=== PATIENT | female | born 1990 | race Caucasian/White ===

== ENCOUNTER 2024-07-19 18:25 | Emergency (ER) | payer MEDICAID, SELFPAY ==
[2024-07-19 18:31] VITALS: BP 133/87; PULSE 114; RESP 22; TEMP 36.6; O2SAT 100; BMI 22.3
--- NOTE | 2024-07-19 18:45 | W.ED.NAVMDI ---
HPI - Nausea/Vomiting/Diarrhea General: Chief complaint: Nausea/Vomiting/Diarrhea Stated complaint: n/v urgent care Time Seen by Provider: 07/19/24 18:41 History of Present Illness: 33-year-old female with a history of anxiety who presents emergency room with nausea and vomiting. She has had a headache. Neck pain. She is having cramping and moriah of her hands bilaterally. She appears extremely anxious. She is tachycardic. She says her chest feels tight. She feels hot. No abdominal pain. No chest pain. No known fevers. Related Data Home Medications ?Medication ?Instructions ?Recorded ?Confirmed albuterol sulfate 90 mcg/actuation 1 inh inhalation QID 05/29/24 07/19/24 aerosol inhaler Previous Rx's ?Medication ?Instructions ?Recorded tizanidine 4 mg tablet 4 mg PO Q8H PRN muscle spasticity 01/13/24 #14 tabs clotrimazole 1 % topical cream 1 applic topical BID 7 days #15 03/22/24 (Lotrimin AF (clotrimazole)) grams fluticasone propionate 50 1 spray intranasal BID 7 days #16 03/22/24 mcg/actuation nasal grams spray,suspension (Flonase Allergy Relief) triamcinolone acetonide 0.5 % 1 applic topical BID 7 days #15 03/22/24 topical ointment grams oxybutynin chloride 10 mg See Rx Instructions .Route 05/31/24 tablet,extended release 24 hr .COMPLEX #30 tabs hydroxyzine HCl 50 mg tablet 50 mg PO QID PRN anxiety/insomnia 06/26/24 #120 tabs sertraline 100 mg tablet (Zoloft) 200 mg (2 x 100 mg) PO DAILY #60 06/26/24 tabs trazodone 100 mg tablet 300 mg (3 x 100 mg) PO .HS PRN 06/26/24 insomnia #90 tabs ondansetron 4 mg disintegrating 4 mg PO Q8H PRN nausea and 07/19/24 tablet vomiting #10 tabs promethazine 25 mg rectal 25 mg MI Q6H PRN nausea and 07/19/24 suppository vomiting #12 ea Allergies Allergy/AdvReac Type Severity Reaction Status Date / Time aspirin Allergy Severe Tongue Verified 07/19/24 18:34 swells cephalexin (From Keflex) Allergy Unknown swelling Verified 07/19/24 18:34 Latex, Natural Rubber AdvReac Severe Montiel skin. Verified 07/19/24 18:34 Review of Systems Narrative: Constitutional symptoms: Negative except as documented in HPI. Skin symptoms: Negative except as documented in HPI. Eye symptoms: Negative except as documented in HPI. ENMT symptoms: Negative except as documented in HPI. Respiratory symptoms: Negative except as documented in HPI. Cardiovascular symptoms: Negative except as documented in HPI. Gastrointestinal symptoms: Negative except as documented in HPI. Genitourinary symptoms: Negative except as documented in HPI. Musculoskeletal symptoms: Negative except as documented in HPI. Neurologic symptoms: Negative except as documented in HPI. Psychiatric symptoms: Negative except as documented in HPI. Endocrine symptoms: Negative except as documented in HPI. PFSH ED PFSH: Medical History ENID (generalized anxiety disorder) High grade squamous intraepithelial lesion (HGSIL), grade 3 MARLEN, on biopsy of cervix Chronic pain Arthropathy of spinal facet joint History of spinal fracture Psychiatric care Surgical History History of partial hysterectomy History of open reduction and internal fixation (ORIF) procedure Left femur age 14 History of D&C History of tubal ligation History of hysterectomy Family History Mother Cancer Father Cancer Grandmother Diabetes Hypertension Grandfather Diabetes Hypertension Hyperthyroidism Grandmother Breast cancer Hypertension Stroke Grandfather Diabetes Heart disease Hypertension Stroke Social History Smoking and tobacco/nicotine status: never used tobacco/nicotine Alcohol intake: never Substance/Drug Use: current Adopted: No Caregiver/support person: No Lives independently: Yes Household members: family Housing: House Marital status: Number of children: 3 service: No Current occupational status: disabled Current occupational exposures/hazards: No Pets and animals: No Do you think of yourself as: Straight/Heterosexual Current gender identity: Female Physical Exam Narrative: EXAM NARRATIVE: General: Alert, no acute distress. Skin: Warm, dry. Head: Normocephalic, atraumatic. Neck: Supple, trachea midline. Eye: Extraocular movements are intact. Ears, nose, mouth and throat: mucosa moist. Cardiovascular: Regular, Normal peripheral perfusion. Respiratory: Lungs are clear to auscultation, respirations are non-labored, breath sounds are equal, Symmetrical chest wall expansion. Gastrointestinal: Soft, Nontender, Non distended Musculoskeletal: Normal ROM, no deformity. Neurological: Alert and oriented, No focal neurological deficit observed. Psychiatric: Cooperative, patient appears quite anxious. She is somewhat tearful. Her hands are cramped. Course Vital Signs: Vital signs: Vital Signs Temperature 97.9 F 07/19/24 18:31 Pulse Rate 66 07/19/24 19:28 Respiratory Rate 16 07/19/24 19:28 Blood Pressure 135/82 07/19/24 19:28 Pulse Oximetry 99 07/19/24 19:28 Oxygen Delivery Me thod Room Air 07/19/24 19:28 MDM - Nausea/Vomiting/Diarrhea Medical Decision Making Medical decision making: Differential diagnosis for this patient with nausea and vomiting including but not limited to and based on the above HPI, review of systems and physical exam: Urinary tract infection. Appendicitis. Cholecystis. colitis. small bowel obstruction. crohn's flare. pancreatitis. gastritis. peptic ulcer. cyclic vomiting. Viral illness. Influenza. COVID. Orders placed to evaluate differential diagnosis based on the above differential, HPI and physical exam Lab Review: Laboratory results were reviewed and interpreted by myself the emergency room physician. Lab work is fairly unremarkable. Mild leukocytosis. No anemia. No renal failure. No urinary tract infection. Urine is somewhat concentrated which would suggest dehydration. Fluids were given I reviewed the patient's medical record. Reexamination: Patient says she feels quite a bit better. No more vomiting. Cramping in her hands have stopped now. Heart rate has decreased from 114 to 66. Assessment and plan: Gastroenteritis Vomiting Dehydration ? Also think there was a component of panic as her ABG shows some hypocapnia. Ativan, Zofran and fluids were given. - Discharged home - Discussed plan with patient. Answered any questions. - Evaluation and treatment of this problem were appropriate in the emergency setting. Lab Data 07/19/24 19:24 07/19/24 19:24 Laboratory Results WBC 11.39 10^3/uL (3.29-11.43) 07/19/24 19:24 RBC 4.65 10^6/uL (3.85-5.65) 07/19/24 19:24 Hgb 14.20 g/dL (11.27-16.99) 07/19/24 19:24 Hct 41.3 % (36-47) 07/19/24 19:24 MCV 88.8 fl (85-98) 07/19/24 19:24 MCH 30.5 pg (27-33) 07/19/24 19:24 MCHC 34.4 g/dL (30-55) 07/19/24 19:24 RDW 12.4 % (12.1-15.1) 07/19/24 19:24 Plt Count 372 10^3/cmm (157-399) 07/19/24 19:24 MPV 9.0 fL (7.4-10.4) 07/19/24 19:24 Neut % (Auto) 60.1 % 07/19/24 19:24 Lymph % (Auto) 29.9 % 07/19/24 19:24 [place] % (Auto) 8.3 % 07/19/24 19:24 Eos % (Auto) 1.0 % 07/19/24 19:24 Baso % (Auto) 0.5 % 07/19/24 19:24 Neut # (Auto) 6.84 10^3/uL (1.8-7.7) 07/19/24 19:24 Lymph # (Auto) 3.4 10^3/uL (0.8-4.8) 07/19/24 19:24 [place] # (Auto) 1.0 10^3/uL (0.2-0.9) H 07/19/24 19:24 Eos # (Auto) 0.1 10^3/uL (0.0-0.8) 07/19/24 19:24 Baso # (Auto) 0.1 10^3/uL (0.0-0.1) 07/19/24 19:24 Nucleated RBC % (auto) 0 % 07/19/24 19: Nucleated RBCs # 0.0 /100WBC 07/19/24 19:24 Specimen Type Arterial 07/19/24 19:47 Sample Site Radial, right 07/19/24 19:47 ABG pH 7.42 (7.35-7.45) 07/19/24 19:47 ABG pCO2 32.3 mmHg (35-45) L 07/19/24 19:47 ABG pO2 83.9 mmHg (80.0-100.0) 07/19/24 19:47 ABG PO2/FiO2 Ratio 399 07/19/24 19:47 ABG HCO3 21.1 mmol/L (22-26) L 07/19/24 19:47 ABG O2 Saturation 94.7 07/19/24 19:47 ABG Base Excess -2.5 mmol/L (-2.0-2.0) L 07/19/24 19:47 Reese Test Pos 07/19/24 19:47 A-a O2 Gradient 3.1 mmHg (5-10) L 07/19/24 19:47 Hematocrit 38.5 % (37-47) 07/19/24 19:47 Hgb O2 Saturation 93.1 % (95-100) L 07/19/24 19:47 Carboxyhemoglobin 0.6 %THgb (0.4-20.1) 07/19/24 19:47 Methemoglobin 1.1 % (0.4-1.5) 07/19/24 19:47 Total Hemoglobin 12.6 g/dL (12-16) 07/19/24 19:47 Sodium 140.0 mmol/L (131-143) 07/19/24 19:47 Potassium 3.2 mmol/L (3.5-5.0) L 07/19/24 19:47 Glucose 88.0 mg/dL (70-115) 07/19/24 19:47 Ionized Calcium 1.2 mmol/L (1.1-1.4) 07/19/24 19:47 O2 Delivery Device Room air 07/19/24 19:47 FiO2 21.0 % 07/19/24 19:47 Business Banker ID Anonymous 07/19/24 19:47 Sodium 142 mmol/L (136-145) 07/19/24 19:24 Potassium 3.8 mmol/L (3.5-5.1) 07/19/24 19:24 Chloride 104 mmol/L (98-107) 07/19/24 19:24 Carbon Dioxide 21 mmol/L (22-29) L 07/19/24 19:24 Anion Gap 20.8 (5-19) H 07/19/24 19:24 BUN 10 mg/dL (6-20) 07/19/24 19:24 Creatinine 0.7 mg/dL (0.5-0.9) 07/19/24 19:24 GFR Calculation 95.8 mL/min (90-130) 07/19/24 19:24 Glucose 92 mg/dL (65-115) 07/19/24 19:24 Calculated Osmolality 293 mOsm/kg (285-295) 07/19/24 19:24 Lactic Acid 2.9 mmol/L (0.5-2.2) H 07/19/24 19:24 Calcium 9.8 mg/dL (8.5-10.5) 07/19/24 19:24 Total Bilirubin 0.6 mg/dL (0.15-1.2) 07/19/24 19:24 AST 13 U/L (0-32) 07/19/24 19:24 ALT 8 U/L (0-33) 07/19/24 19:24 Alkaline Phosphatase 70 U/L (35-105) 07/19/24 19:24 Total Protein 7.3 g/dL (6.6-8.7) 07/19/24 19:24 Albumin 4.9 g/dL (3.5-5.2) 07/19/24 19:24 Globulin 2.4 g/dL (1.3-4.6) 07/19/24 19:24 Lipase 11 U/L (13-60) L 07/19/24 19:24 HCG, Qual Negative (Negative) 07/19/24 19:24 Urine Color Yellow (Yellow) 07/19/24 19:06 Urine Appearance Turbid (CLEAR) A 07/19/24 19:06 Urine pH 8.5 (5-7) A 07/19/24 19:06 Ur Specific [place] 1.031 (1.005-1.030) H 07/19/24 19:06 Urine Protein 1+ (Negative) A 07/19/24 19:06 Urine Glucose (UA) Negative (Normal) 07/19/24 19:06 Urine Ketones 2+ (Negative) H 07/19/24 19:06 Urine Blood Negative (Negative) 07/19/24 19:06 Urine Nitrate Negative (Negative) 07/19/24 19:06 Urine Bilirubin Negative (Negative) 07/19/24 19:06 Urine Urobilinogen 1.0 mg/dL (Negative) 07/19/24 19:06 Ur Leukocyte Esterase Negative (Negative) 07/19/24 19:06 Urine RBC 0-4 /hpf (0-2) H 07/19/24 19:06 Urine WBC 0-4 /hpf (0-5) H 07/19/24 19:06 Ur Squamous Epith Cells 5-10 /hpf (0-5) H 07/19/24 19:06 Amorphous Sediment 3+ /hpf 07/19/24 19:06 Urine Bacteria Trace /hpf (NONE) 07/19/24 19:06 Urine Mucus Trace /hpf 07/19/24 19:06 Urine Opiates Screen Negative ng/mL (Negative) 07/19/24 19:06 Ur Barbiturates Screen Negative ng/mL (Negative) 07/19/24 19:06 Ur Phencyclidine Scrn Negative ng/mL (Negative) 07/19/24 19:06 Ur Amphetamines Screen Negative ng/mL (Negative) 07/19/24 19:06 U Benzodiazepines Scrn Negative ng/mL (Negative) 07/19/24 19:06 Urine Cocaine Screen Negative ng/mL (Negative) 07/19/24 19:06 U Marijuana (THC) Screen Positive ng/mL (Negative) H 07/19/24 19:06 Influenza A (PCR) Negative (Negative) 07/19/24 19:24 Influenza Type B (PCR) Negative (Negative) 07/19/24 19:24 RSV (PCR) Negative (Negative) 07/19/24 19:24 SARS-CoV-2 (PCR) Negative (Negative) 07/19/24 19:24 All radiology interpretation(s) finalized by discharge Discharge Plan Discharge Patient Disposition: Home Clinical Impression: Gastroenteritis Condition: Stable Prescriptions: New promethazine 25 mg suppository 25 mg MI Q6H PRN (Reason: nausea and vomiting) Qty: 12 0RF ondansetron 4 mg tablet,disintegrating 4 mg PO Q8H PRN (Reason: nausea and vomiting) Qty: 10 0RF No Action trazodone 100 mg tablet 300 mg PO .HS PRN (Reason: insomnia) Qty: 90 2RF sertraline [Zoloft] 100 mg tablet 200 mg PO DAILY Qty: 60 2RF hydroxyzine HCl 50 mg tablet 50 mg PO QID PRN (Reason: anxiety/insomnia) Qty: 120 2RF triamcinolone acetonide 0.5 % ointment 1 applic topical BID 7 Days Qty: 15 0RF Rx Instructions: Apply to chest twice daily. clotrimazole [Lotrimin AF (clotrimazole)] 1 % cream 1 applic topical BID 7 Days Qty: 15 0RF fluticasone propionate [Flonase Allergy Relief] 50 mcg/actuation spray,suspension 1 spray intranasal BID 7 Days Qty: 16 0RF Rx Instructions: administer into each nostril albuterol sulfate 90 mcg/actuation HFA aerosol inhaler 1 inh inhalation QID oxybutynin chloride 10 mg tablet extended release 24hr See Rx Instructions .ROUTE .COMPLEX Qty: 30 3RF Dose Instruction: Take 1 tablet by mouth once daily Rx Instructions: Take 1 tablet by mouth once daily tizanidine 4 mg tablet 4 mg PO Q8H PRN (Reason: muscle spasticity) Qty: 14 0RF Discharge Orders: Discharge ED (Routine); Ordered 07/19/24 Ordered By: Mariia Calderón Referrals: Ashleigh Hernandez NP [Primary Care Provider] - Discharge Diet: Advance as tolerated Discharge Activity: Increase activity as tolerated Patient Instructions: Gastroenteritis (ED), Opioid Safety, Pain Management Activity Restrictions/Additional Instructions: Thank you for choosing [facility] for your healthcare needs today. Please realize this is an emergency room and that we are providing you with a medical screening exam and this may not be complete and all inclusive of all the testing and or work up that you may need to determine your ailment or severity of your illness. You have been screened and evaluated and felt safe for discharge. Health conditions do change or evolve sometimes and as such it is important that you follow up with your Primary Doctor to be re checked, 3-5 days is a general good time frame for follow up. You are always welcome to return to the ED for re assessment if your symptoms are worsening or you have new concerns Print Language: [place] Coding Level of Care Code ED Otter Trawler Boatswain for Talisha Lindquist
[2024-07-19 19:18] LABS: Bilirubin Urine Negative (Negative); Blood Urine Negative (Negative); Glucose Urine UA Negative (Normal); Ketones Urine 2+ (Negative); Leukocyte Esterase Urine Negative (Negative); Nitrate Urine Negative (Negative); Protein Urine 1+ (Negative); Urine Appearance Turbid (CLEAR); Urine Color Yellow (Yellow); pH Urine 8.5 (5-7)
[2024-07-19] MEDS: ondansetron 2 mg/ML SDV 2 mL 8 MG IVP (19:21)
[2024-07-19] MEDS: LORazepam 2 mg/mL INJ 1 mL 1 MG IVP (19:22)
[2024-07-19] MEDS: sodium chloride 0.9% 1,000 ML 999 ML IV (19:23)
[2024-07-19 19:28] VITALS: BP 135/82; PULSE 66; RESP 16; O2SAT 99
[2024-07-19 19:36] LABS: Specific Gravity, Urine 1.031 (1.005-1.030)
[2024-07-19 19:37] LABS: Add Urine Microscopic? YES
[2024-07-19 19:38] LABS: Basophils # 0.1 10^3/uL (0.0-0.1); Basophils % 0.5 %; Eosinophils # 0.1 10^3/uL (0.0-0.8); Hematocrit 41.3 % (36-47); Lymphocytes # 3.4 10^3/uL (0.8-4.8); Lymphocytes % 29.9 %; Mean Corpuscular HGB Conc 34.4 g/dL (30-55); Mean Corpuscular Hemoglobin 30.5 pg (27-33); Mean Corpuscular Volume 88.8 fl (85-98); Monocytes % 8.3 %; Neutrophils # 6.84 10^3/uL (1.8-7.7); Neutrophils % 60.1 %; Nucleated Red Blood Cells % 0 %; Platelet Count 372 10^3/cmm (157-399); Red Blood Count 4.65 10^6/uL (3.85-5.65); Red Cell Distribution Width 12.4 % (12.1-15.1); White Blood Count 11.39 10^3/uL (3.29-11.43)
[2024-07-19 19:39] LABS: Add Urine Culture? No; Amorphous Sediment Urine 3+ /hpf; Bacteria Urine TRACE /hpf; Mucus Urine TRACE /hpf; RBC Urine 0-4 /hpf (0-2); WBC Urine 0-4 /hpf (0-5)
[2024-07-19 19:47] LABS: Amphetamines Screen Urine Negative (Negative); Barbiturates Screen Urine Negative (Negative); Benzodiazepines Screen Urine Negative (Negative); Cocaine Screen Urine Negative (Negative); Opiate Screen Urine Negative (Negative); PCP Screen Urine Negative (Negative); THC Screen Urine Positive (Negative)
[2024-07-19 19:52] LABS: Alanine Aminotransferase 8 U/L (0-33); Albumin Level 4.9 g/dL (3.5-5.2); Alkaline Phosphatase 70 U/L (35-105); Anion Gap 20.8 (5-19); Aspartate Amino Transferase 13 U/L (0-32); Blood Urea Nitrogen 10 mg/dL (6-20); Calcium 9.8 mg/dL (8.5-10.5); Carbon Dioxide 21 mmol/L (22-29); Chloride 104 mmol/L (98-107); Creatinine Clr Calc Pharmacy 100.8383; Globulin 2.4 g/dL (1.3-4.6); Glomerular Filtration Rate 95.8 mL/min (90-130); Glucose 92 mg/dL (65-115); HCG, Serum Qual Negative (Negative); Lipase 11 U/L (13-60); Osmolality Calculated 293 mOsm/kg (285-295); Potassium 3.8 mmol/L (3.5-5.1); Sodium 142 mmol/L (136-145); Total Bilirubin 0.6 mg/dL (0.15-1.2); Total Protein 7.3 g/dL (6.6-8.7)
[2024-07-19 19:53] LABS: Lactic Sepsis W/Reflex 2.9 mmol/L (0.5-2.2)
[2024-07-19 19:59] LABS: ABG PCO2 32.3 mmHg (35-45); ABG PH Result 7.42 (7.35-7.45); Alveolar-Arterial Oxygen Gradi 3.1 mmHg (5-10); Arterial Blood Gas Hematocrit 38.5 % (37-47); Base Excess ABG -2.5 mmol/L (-2.0-2.0); Blood Gas Allen Test Pos; Blood Gas Operator Identificat Anonymous; Blood Gas Sample Site Radial, right; Blood Gas Sample Type Arterial; Carboxyhemoglobin 0.6 %THgb (0.4-20.1); HCO3 ABG 21.1 mmol/L (22-26); HGB O2 Sat 93.1 % (95-100); Ionized Calcium Level - ABG 1.2 mmol/L (1.1-1.4); Methemoglobin 1.1 % (0.4-1.5); Oxygen Device ROOM AIR; Oxygen Saturation ABG 94.7; PO2 ABG 83.9 mmHg (80.0-100.0); PO2 FiO2 Ratio Arterial Blood 399; Potassium Level - ABG 3.2 mmol/L (3.5-5.0); Total Hemoglobin 12.6 g/dL (12-16)
[2024-07-19 20:11] LABS: Influenza A NEGATIVE (Negative); Influenza B NEGATIVE (Negative); Respiratory Syncytial Virus Ce NEGATIVE (Negative); SARS-CoV-2 PCR NEGATIVE (Negative)
[2024-07-19 20:53] VITALS: BP 119/70; PULSE 74; RESP 16; O2SAT 97
[2024-07-19 21:21] LABS: Reflex Lactate Order REFLEX LACTIC ORDERD
== END 2024-07-19 20:45 | disposition home or self-care (01) ==
PROVIDERS: Emergency Medicine; Emergency Provider Emergency Medicine; PCP Nurse Practitioner Family
DX: K52.9 Noninfective gastroenteritis and colitis, unspecified (principal); Z11.52 Encounter for screening for COVID-19
CPT/HCPCS: 36600; 80051; 80053; 80306; 81001; 82330; 82805; 83605; 83690; 84703; 85025; 87637; 96361; 96374; 96375; 99284; J2060; J2405; J7030

== ENCOUNTER → 2024-09-12 14:47 | Outpatient (BNVA) | payer MEDICAID, SELFPAY | PROVIDERS: PCP Nurse Practitioner Family | DX: R89.9 Unspecified abnormal finding in specimens from other organs, systems and tissues (principal) | CPT/HCPCS: 80048 ==

== ENCOUNTER → 2024-10-03 09:15 | Outpatient (BNVA) | payer MEDICAID, SELFPAY | PROVIDERS: PCP Nurse Practitioner Family; Visit Provider Student in an Organized Health Care Education/Training Program | DX: M25.511 Pain in right shoulder (principal); S46.001A Unspecified injury of muscle(s) and tendon(s) of the rotator cuff of right shoulder, initial encounter; S43.431A Superior glenoid labrum lesion of right shoulder, initial encounter; Z87.828 Personal history of other (healed) physical injury and trauma; X58.XXXA Exposure to other specified factors, initial encounter | CPT/HCPCS: 73030 ==

== ENCOUNTER → 2024-10-05 14:55 | Outpatient (BNVA) | payer MEDICAID, SELFPAY | PROVIDERS: PCP Nurse Practitioner Family; Visit Provider Orthopaedic Surgery | DX: M54.9 Dorsalgia, unspecified (principal); M54.2 Cervicalgia; M54.50 Low back pain, unspecified | CPT/HCPCS: 72050; 72072; 72110 ==

== ENCOUNTER 2024-11-01 13:45 | Outpatient (RCR) | payer MEDICAID, SELFPAY | END 2024-11-20 23:59 | disposition home or self-care (01) | LOC: SPT 13:45 | PROVIDERS: Visit Provider Orthopaedic Surgery | DX: M54.6 Pain in thoracic spine (principal); M54.50 Low back pain, unspecified; G89.29 Other chronic pain | CPT/HCPCS: 97161 ==

== ENCOUNTER 2024-11-12 16:58 | Emergency (ER) | payer MEDICAID, SELFPAY ==
[2024-11-12 17:05] VITALS: BP 121/69; PULSE 69; RESP 16; TEMP 36.8; O2SAT 99; BMI 20.4
--- NOTE | 2024-11-12 17:21 | ED_ITS ---
HPI - Abdominal Pain 2 General: Chief Complaint: Abdominal Pain Stated Complaint: abd pain Time Seen by Provider: 11/12/24 17:03 History of Present Illness: 34-year-old female presents with abdomin al pain for couple days. also is concerned that she may be getting a heat illness is a do not have air conditioning in her house with the heat going on right now. She has been having some lower abdominal cramping pain that goes to her back for the last couple days. Has some mild discomfort with urination. Associated Symptoms: Reports dysuria and nausea; Denies chills, diarrhea and vomiting Related Data Previous Rx's ?Medication ?Instructions ?Recorded oxybutynin chloride 10 mg See Rx Instructions .Route 0 05/31/24 tablet,extended release 24 hr .COMPLEX #30 tabs hydroxyzine HCl 50 mg tablet 50 mg PO QID PRN anxiety/ insomnia 06/26/24 #120 tabs sertraline 100 mg tablet (Zoloft) 200 mg (2 x 100 mg) PO DAILY #60 09/25/24 tabs trazodone 100 mg tablet 300 mg (3 x 100 mg) PO .HS P RN 09/25/24 insomnia #90 tabs Allergies Allergy/AdvReac Type Severity Reaction Status Date / Time aspirin Allergy Severe Tongue Verified 11/12/24 16:41 swells cephalexin (From Keflex) Allergy Unknown swelling Verified 11/12/24 16:41 Latex, Natural Rubber AdvReac Severe Montiel skin. Verified 11/12/24 16:41 Review of Systems 2 Const: Reports: malaise; Denies: chills GI: Reports: abdominal pain and nausea; Denies: vomiting or diarrhea : Reports: dysuria Musc: Denies: neck pain or back pain Skin/Breast: Denies: rash PFSH ED 2 PFSH: Medical History ENID (generalized anxiety disorder) High grade squamous intraepithelial lesion (HGSIL), grade 3 MARLEN, on biopsy of cervix Chronic pain Arthropathy of spinal facet joint History of spinal fracture Psychiatric care Surgical History History of partial hysterectomy History of open reduction and internal fixation (ORIF) procedure Left femur age 14 History of D&C History of tubal ligation History of hysterectomy Family History Mother Cancer Father Cancer Grandmother Diabetes Hypertension Grandfather Diabetes Hypertension Hyperthyroidism Grandmother Breast cancer Hypertension Stroke Grandfather Diabetes Heart disease Hypertension Stroke Social History Smoking and tobacco/nicotine status: current every day tobacco/nicotine user Alcohol intake: never Substance/Drug Use: current Adopted: No Caregiver/support person: No Lives independently: Yes Household members: family Housing: House Marital status: Number of children: 3 service: No Current occupational status: disabled Current occupational exposures/hazards: No Pets and animals: No Do you think of yourself as: Straight/Heterosexual Current gender identity: Female Physical Exam 2 Const: COMMON NORMALS: no acute distress, patient oriented x3 and alert Resp: COMMON NORMALS: normal respiratory effort and clear to auscultation bilaterally AUSCULTATION: clear to auscultation bilaterally Cardio: COMMON NORMALS: regular rate and regular rhythm RATE: regular rate RHYTHM: regular rhythm GI: PALPATION: Yes Tenderness to palpation present (GI) (Lower abdomen, suprapubic) Neuro: COMMON NORMALS: patient oriented x3 and no sensory deficits noted S ENSORIUM/ORIENTATION: Yes alert Psych: COMMON NORMALS: mental status grossly normal Skin: COMMON NORMALS: turgor normal GENERAL SKIN EXAM: turgor normal Course 2 Vital Signs: Vital signs: Vital Signs Temperature 98.2 F 11/12/24 17:05 Pulse Rate 50 L 11/12/24 18:43 Respiratory Rate 16 11/12/24 18:43 Blood Pressure 108/76 11/12/24 18:43 Pulse Oximetry 100 11/12/24 18:43 Oxygen Delivery Me thod Room Air 11/12/24 18:43 MDM - Abdominal Pain Medical Decision Making Patient's diagnostic studies were ordered reviewed showed no acute findings. Patient is feeling significant better following IV fluids. I suspect patient likely has had some mild dehydration and is likely having some bladder spasms as her discomfort is after she urinates. We discussed supportive care measures for that. I did discuss imaging but at this time she does not feel that that is needed she is feeling better and would like to be discharged home. She will return to the ER as needed. Stable and discharged home Lab Data 11/12/24 17:47 11/12/24 17:47 Labs/Radiology: Laboratory Results WBC 8.66 10^3/uL (3.29-11.43) 11/12/24 17:47 RBC 4.62 10^6/uL (3.85-5.65) 11/12/24 17:47 Hgb 14.10 g/dL (11.27-16.99) 11/12/24 17:47 Hct 41.8 % (36-47) 11/12/24 17:47 MCV 90.5 fl (85-98) 11/12/24 17:47 MCH 30.5 pg (27-33) 11/12/24 17:47 MCHC 33.7 g/dL (30-55) 11/12/24 17:47 RDW 11.9 % (12.1-15.1) L 11/12/24 17:47 Plt Count 242 10^3/cmm (157-399) 11/12/24 17:47 MPV 9.2 fL (7.4-10.4) 11/12/24 17:47 Neut % (Auto) 53.4 % 11/12/24 17:47 Lymph % (Auto) 34.5 % 11/12/24 17:47 [place] % (Auto) 8.3 % 11/12/24 17:47 Eos % (Auto) 2.9 % 11/12/24 17:47 Baso % (Auto) 0.7 % 11/12/24 17:47 Neut # (Auto) 4.62 10^3/uL (1.8-7.7) 11/12/24 17:47 Lymph # (Auto) 3.0 10^3/uL (0.8-4.8) 11/12/24 17:47 [place] # (Auto) 0.7 10^3/uL (0.2-0.9) 11/12/24 17:47 Eos # (Auto) 0.3 10^3/uL (0.0-0.8) 11/12/24 17:47 Baso # (Auto) 0.1 10^3/uL (0.0-0.1) 11/12/24 17:47 Nucleated RBC % (auto) 0 % 11/12/24 17:47 Nucleated RBCs # 0.0 /100WBC 11/12/24 17:47 Sodium 142 mmol/L (136-145) 11/12/24 17:47 Potassium 3.8 mmol/L (3.5-5.1) 11/12/24 17:47 Chloride 106 mmol/L (98-107) 11/12/24 17:47 Carbon Dioxide 23 mmol/L (22-29) 11/12/24 17:47 Anion Gap 16.8 (5-19) 11/12/24 17:47 BUN 10 mg/dL (6-20) 11/12/24 17:47 Creatinine 0.7 mg/dL (0.5-0.9) 11/12/24 17:47 GFR Calculation 95.2 mL/min (90-130) 11/12/24 17:47 Glucose 89 mg/dL (65-115) 11/12/24 17:47 Calculated Osmolality 293 mOsm/kg (285-295) 11/12/24 17:47 Calcium 8.8 mg/dL (8.5-10.5) 11/12/24 17:47 Magnesium 1.9 mg/dL (1.7-2.3) 11/12/24 17:47 Total Bilirubin 0.2 mg/dL (0.15-1.2) 11/12/24 17:47 AST 13 U/L (0-32) 11/12/24 17:47 ALT 7 U/L (0-33) 11/12/24 17:47 Alkaline Phosphatase 69 U/L (35-105) 11/12/24 17:47 Total Protein 6.7 g/dL (6.6-8.7) 11/12/24 17:47 Albumin 4.3 g/dL (3.5-5.2) 11/12/24 17:47 Globulin 2.4 g/dL (1.3-4.6) 11/12/24 17:47 Lipase 11 U/L (13-60) L 11/12/24 17:47 Urine Color Yellow (Yellow) 11/12/24 18:26 Urine Appearance Cloudy (CLEAR) A 11/12/24 18:26 Urine pH 6.5 (5-7) 11/12/24 18:26 Ur Specific [place] 1.022 (1.005-1.030) 11/12/24 18:26 Urine Protein Negative (Negative) 11/12/24 18:26 Urine Glucose (UA) Negative (Normal) 11/12/24 18:26 Urine Ketones Trace (Negative) 11/12/24 18:26 Urine Blood Negative (Negative) 11/12/24 18:26 Urine Nitrate Positive (Negative) A 11/12/24 18:26 Urine Bilirubin Negative (Negative) 11/12/24 18:26 Urine Urobilinogen 1.0 mg/dL (Negative) 11/12/24 18:26 Ur Leukocyte Esterase Negative (Negative) 11/12/24 18:26 Urine RBC 0-2 /hpf (0-2) 11/12/24 18:26 Urine WBC 0-5 /hpf (0-5) 11/12/24 18:26 Ur Squamous Epith Cells 11-20 /hpf (0-5) H 11/12/24 18:26 Amorphous Sediment Not Reportable 11/12/24 18:26 Urine Bacteria Exceeds /hpf (NONE) 11/12/24 18:26 Hyaline Casts 2.46 /lpf 11/12/24 18:26 Urine Opiates Screen Negative ng/mL (Negative) 11/12/24 18:26 Ur Barbiturates Screen Negative ng/mL (Negative) 11/12/24 18:26 Ur Phencyclidine Scrn Negative ng/mL (Negative) 11/12/24 18:26 Ur Amphetamines Screen Negative ng/mL (Negative) 11/12/24 18:26 U Benzodiazepines Scrn Negative ng/mL (Negative) 11/12/24 18:26 Urine Cocaine Screen Negative ng/mL (Negative) 11/12/24 18:26 U Marijuana (THC) Screen Positive ng/mL (Negative) H 11/12/24 18:26 Ethyl Alcohol < 10 mg/dL (0-10) 11/12/24 17:47 No radiology studies performed this visit Discharge Plan Discharge Patient Disposition: Home Clinical Impression: Dehydration, mild, Adverse effect of heat, Bladder spasms Condition: Stable Prescriptions: No Action hydroxyzine HCl 50 mg tablet 50 mg PO QID PRN (Reason: anxiety/insomnia) Qty: 120 2RF trazodone 100 mg tablet 300 mg PO .HS PRN (Reason: insomnia) Qty: 90 2RF sertraline [Zoloft] 100 mg tablet 200 mg PO DAILY Qty: 60 2RF oxybutynin chloride 10 mg tablet extended release 24hr See Rx Instructions .ROUTE .COMPLEX Qty: 30 3RF Dose Instruction: Take 1 tablet by mouth once daily Rx Instructions: Take 1 tablet by mouth once daily Discharge Orders: Discharge ED (Routine); Ordered 11/12/24 Ordered By: Armando Moeller Discharge Diet: Usual diet Discharge Activity: Resume usual activity Patient Instructions: Dehydration - Adult, Heat Cramps - Adult, Opioid Safety, Pain Management Activity Restrictions/Additional Instructions: Be sure you are drinking plenty of electrolyte containing fluids with the heat. You may use [id number] Azo/Pyridium to help with any discomfort from the spasms after you urinate. If symptoms not improving over the next day or 2 please follow-up with your primary care provider or return to the ER for further evaluation. Print Language: German Coding Level of Care Code ED Foreclosure Field Inspector for Talisha Lindquist
[2024-11-12 17:54] LABS: Basophils # 0.1 10^3/uL (0.0-0.1); Basophils % 0.7 %; Eosinophils # 0.3 10^3/uL (0.0-0.8); Eosinophils % 2.9 %; Hematocrit 41.8 % (36-47); Lymphocytes % 34.5 %; Mean Corpuscular HGB Conc 33.7 g/dL (30-55); Mean Corpuscular Hemoglobin 30.5 pg (27-33); Mean Corpuscular Volume 90.5 fl (85-98); Mean Platelet Volume 9.2 fL (7.4-10.4); Monocytes # 0.7 10^3/uL (0.2-0.9); Monocytes % 8.3 %; Neutrophils # 4.62 10^3/uL (1.8-7.7); Neutrophils % 53.4 %; Nucleated Red Blood Cells % 0 %; Platelet Count 242 10^3/cmm (157-399); Red Blood Count 4.62 10^6/uL (3.85-5.65); Red Cell Distribution Width 11.9 % (12.1-15.1); White Blood Count 8.66 10^3/uL (3.29-11.43)
[2024-11-12] MEDS: sodium chloride 0.9% 1,000 ML 999 ML IV (17:57)
[2024-11-12 18:13] LABS: Alanine Aminotransferase 7 U/L (0-33); Albumin Level 4.3 g/dL (3.5-5.2); Alcohol Level < 10 mg/dL (0-10); Alkaline Phosphatase 69 U/L (35-105); Anion Gap 16.8 (5-19); Aspartate Amino Transferase 13 U/L (0-32); Blood Urea Nitrogen 10 mg/dL (6-20); Calcium 8.8 mg/dL (8.5-10.5); Carbon Dioxide 23 mmol/L (22-29); Chloride 106 mmol/L (98-107); Creatinine Clr Calc Pharmacy 96.3525; Globulin 2.4 g/dL (1.3-4.6); Glomerular Filtration Rate 95.2 mL/min (90-130); Glucose 89 mg/dL (65-115); Lipase 11 U/L (13-60); Magnesium 1.9 mg/dL (1.7-2.3); Osmolality Calculated 293 mOsm/kg (285-295); Potassium 3.8 mmol/L (3.5-5.1); Sodium 142 mmol/L (136-145); Total Bilirubin 0.2 mg/dL (0.15-1.2); Total Protein 6.7 g/dL (6.6-8.7)
[2024-11-12 18:43] VITALS: BP 108/76; PULSE 50; RESP 16; O2SAT 100
[2024-11-12 18:47] LABS: Bilirubin Urine Negative (Negative); Blood Urine Negative (Negative); Glucose Urine UA Negative (Normal); Ketones Urine Trace (Negative); Leukocyte Esterase Urine Negative (Negative); Nitrate Urine Positive (Negative); Protein Urine Negative (Negative); Specific Gravity, Urine 1.022 (1.005-1.030); Urine Appearance Cloudy (CLEAR); Urine Color Yellow (Yellow); pH Urine 6.5 (5-7)
[2024-11-12 18:52] LABS: Add Urine Microscopic? YES; Bacteria Urine EXCEEDS /hpf; Hyaline Casts Urine 2.46 /lpf; RBC Urine 0-2 /hpf (0-2); WBC Urine 0-5 /hpf (0-5)
[2024-11-12 18:54] LABS: Amphetamines Screen Urine Negative (Negative); Barbiturates Screen Urine Negative (Negative); Benzodiazepines Screen Urine Negative (Negative); Cocaine Screen Urine Negative (Negative); Opiate Screen Urine Negative (Negative); PCP Screen Urine Negative (Negative); THC Screen Urine Positive (Negative)
[2024-11-12 19:19] VITALS: BP 99/63; PULSE 56; O2SAT 94
== END 2024-11-12 19:24 | disposition home or self-care (01) ==
PROVIDERS: Emergency Provider Student in an Organized Health Care Education/Training Program
DX: E86.0 Dehydration (principal); T67.9XXA Effect of heat and light, unspecified, initial encounter; X58.XXXA Exposure to other specified factors, initial encounter; N32.89 Other specified disorders of bladder; Z72.0 Tobacco use
CPT/HCPCS: 36415; 80053; 80306; 80307; 81001; 83690; 83735; 85025; 99283; J7030

== ENCOUNTER 2024-11-21 05:00 | Outpatient (RCR) | payer MEDICAID, SELFPAY | END 2024-12-21 23:59 | disposition home or self-care (01) | LOC: SPT 05:00 | PROVIDERS: Visit Provider Orthopaedic Surgery | DX: M54.6 Pain in thoracic spine (principal); M54.50 Low back pain, unspecified; G89.29 Other chronic pain | CPT/HCPCS: 97110 ==

== ENCOUNTER 2025-03-20 07:39 | Outpatient (CLI) | payer MEDICAID, SELFPAY ==
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
[2025-03-20] MEDS: iohexol 240 mg/mL 50 mL Btl 20 ML INTRA-ARTI (10:05)
== END 2025-03-20 07:40 | disposition home or self-care (01) ==
LOC: RAD 07:41
PROVIDERS: Visit Provider Physician Assistant
DX: S43.431A Superior glenoid labrum lesion of right shoulder, initial encounter (principal); S46.001A Unspecified injury of muscle(s) and tendon(s) of the rotator cuff of right shoulder, initial encounter; X58.XXXA Exposure to other specified factors, initial encounter; R93.7 Abnormal findings on diagnostic imaging of other parts of musculoskeletal system; M67.813 Other specified disorders of tendon, right shoulder
CPT/HCPCS: 23350; 73223; 77002; J9999; Q9966

== ENCOUNTER → 2025-04-12 12:54 | Outpatient (BNVA) | payer MEDICAID, SELFPAY | PROVIDERS: Visit Provider Orthopaedic Surgery | DX: M54.2 Cervicalgia (principal) | CPT/HCPCS: 72050 ==